=== PATIENT | male | born 1965 | race Caucasian/White ===

== ENCOUNTER 2019-11-19 10:49 | Emergency (ER) | payer MEDICARE, SELFPAY ==
--- NOTE | ~2019-11-19 | XR_ITS ---
XR chest 2V DATE: 11/19/2019 11:25 INDICATION: Loose cough for one month. Smoker. TECHNIQUE: 2 views COMPARISON: 05/06/2018 two-view chest FINDINGS: Bilateral hyperinflation consistent with COPD. No pulmonary infiltrate or consolidation, pl eural effusion or pulmonary vascular congestion or pneumothorax. No hilar or mediastinal enlargement. Normal heart size. Right glenohumeral joint replacement. Diffuse osteopenia. Status post cholecystectomy. IMPRESSION: Bilateral hyperinflation consistent with COPD No active cardiopulmonary disease or significant new finding since 05/06/2018 Reviewed, dictated and finalized at location A.
[2019-11-19 10:58] VITALS: BP 141/78; PULSE 64; RESP 20; TEMP 36.2; O2SAT 100
--- NOTE | 2019-11-19 11:05 | ED.URI ---
HPI - URI/Sore Throat General Chief Complaint: Upper Respiratory Infection Stated Complaint: cough History of Present Illness HPI Narrative: This a 54-year-old man has been coughing for over a month patient states he is coming in because he wanted to make sure everything was okay. Patient is a pack-a-day smoker patient states that he has some shortness of breath is been going on. Patient denies any fever nausea vomiting denies coughing up anything of any color. Related Data Home Medications Medication Instructions Recorded Confirmed morphine 15 mg PO Q12H 11/19/19 11/19/19 tizanidine 2 mg PO HS 11/19/19 11/19/19 Allergies Allergy/AdvReac Type Severity Reaction Status Date / Time adhesive tape AdvReac Unknown Other Verified 05/06/18 11:13 Review of Systems Review of Systems: Narrative: CONSTITUTIONAL: Denies fever, chills, or sweats. EYES: Denies visual changes, redness, or discharge. ENT: Denies rhinorrhea, congestion, sore throat, or otalgia. CARDIOVASCULAR:Denies chest pain, palpitations, or edema. RESPIRATORY: positive cough or dyspnea. GASTROINTESTINAL: Denies abdominal pain, nausea, vomiting, or diarrhea. GENITOURINARY: Denies dysuria or hematuria. SKIN:[Denies rash or itching. MUSCULOSKELETAL:Denies back pain, joint pain, or myalgia. NEUROLOGIC: Denies headache, numbness, or weakness. PSYCHIATRIC:Denies anxiety or depression PMFSH Comments At time as signature, I have reviewed and agree with nursing past medical, social, surgical and family history. Please see nursing chart for further information. There is no relevant family history pertinent to the presenting complaint. Exam Narrative: Exam Narrative: GENERAL:Well-appearing, well-nourished, and in no acute distress. HEAD:Normocephalic, atraumatic. EYES: PERRLA and EOMI. ENT: Nares clear, no rhinorrhea or epistaxis. Mucous membranes moist. NECK: Supple. CHEST: Clear to auscultation.diminished in right lower lobe No respiratory distress. HEART: Regular rate and rhythm. No murmur heard. Normal peripheral pulses. ABDOMEN: Soft, nontender, nondistended, normal active bowel sounds. EXTREMITIES: Normal range of motion. No edema. SKIN: Warm, dry, no rash. NEURO: No focal deficits. Alert and oriented x3. For the Course Vital Signs Vital signs: Vital Signs Temperature 97.2 F L 11/19/19 10:58 Pulse Rate 64 11/19/19 10:58 Respiratory Rate 20 11/19/19 10:58 Blood Pressure 141/78 H 11/19/19 10:58 Pulse Oximetry 100 11/19/19 10:58 Temperature 97.2 F L 11/19/19 10:58 Pulse Rate 64 11/19/19 10:58 Respiratory Rate 20 11/19/19 10:58 Blood Pressure 141/78 H 11/19/19 10:58 Pulse Oximetry 100 11/19/19 10:58 Discharge Plan Discharge Clinical Impression: COPD (chronic obstructive pulmonary disease) Qualifiers: COPD type: unspecified COPD Qualified Code(s): J44.9 - Chronic obstructive pulmonary disease, unspecified Patient Disposition: Home, Self-Care Condition: Stable Instructions: Antibiotic Form, COPD (Chronic Obstructive Pulmonary Disease) (ED), How Your Lungs Work (ED), Chronic Lung Disease and Infection Prevention (ED), Nutrition Guidelines for People with COPD (ED) Additional Instructions: you need to follow up with your PCP for a referral for a Pulmonolgist Prescriptions: New benzonatate 100 mg capsule 100 mg PO TID PRN (Reason: cough) Qty: 20 RF: 0 albuterol sulfate [Ventolin HFA] 90 mcg/actuation HFA aerosol inhaler 2 puff INHALATION QID PRN (Reason: shortness of breath or wheezing) Qty: 8.5 RF: 0 methylprednisolone [Medrol (David)] 4 mg tablets,dose pack See Rx Instructions .ROUTE .COMPLEX Qty: 21 RF: 0 No Action tizanidine 2 mg Tablet 2 mg PO HS RF: 0 morphine 15 mg Tablet Extended Release 15 mg PO Q12H RF: 0 Follow-up/Referrals: UNKNOWN,DOCTOR [Primary Care Provider] - Time of Disposition: 12:00
== END 2019-11-19 12:15 | disposition home or self-care (01) ==
PROVIDERS: Emergency Provider Nurse Practitioner Family
DX: J44.9 Chronic obstructive pulmonary disease, unspecified (principal); F17.200 Nicotine dependence, unspecified, uncomplicated; K21.9 Gastro-esophageal reflux disease without esophagitis; Z98.52 Vasectomy status
CPT/HCPCS: 71046; 99213; G0463

== ENCOUNTER 2022-04-20 09:09 | Emergency (ER) | payer MEDICARE, SELFPAY ==
--- NOTE | ~2022-04-20 | XR_ITS ---
EXAMINATION: XR tibia fibula LT 2V DATE: 04/20/2022 09:59 INDICATION: Lateral left lower leg pain and bruising post fall TECHNIQUE: Anteroposterior and lateral views of the left tibia and fibula were obtained. COMPARISON: None. FINDINGS: Bone alignment is normal. No fracture. Mild joint space narrowing consistent with mild polyarticular osteoarthritis at the lateral compartment of the left knee and at the left ankle and hindfoot. No lef t knee or ankle joint effusion. Soft tissue swelling with subcutaneous edema along the lateral aspect of the proximal to mid left calf. IMPRESSION: 1. No acute osseous abnormality. Reviewed, dictated and finalized at location A.
[2022-04-20 09:18] VITALS: BP 155/76; PULSE 62; RESP 16; TEMP 36.8; O2SAT 100
--- NOTE | 2022-04-20 09:35 | ED.LOWEXIN ---
HPI - Extremity Injury (Lower) General Chief Complaint: Extremity Injury, Lower Stated Complaint: Left Leg Injury Time Seen by Provider: 04/20/22 09:48 Source: patient and RN notes reviewed Mode of arrival: ambulatory Limitations: no limitations History of Present Illness HPI Narrative: 57-year-old I saw male presents with concern for left lower leg injury. Reports on Wednesday he slipped on a wet floor landing on the side of his leg. He reports he immediately had a large swollen area to the lateral leg, below the knee. Reports the swelling has decreased however he still has pain to touch and pain with weightbearing. He denies taking any [id number] pain medications, has not used ice or other intervention. He denies decree sensation, strength, range of motion. MD complaint: leg injury Related Data Home Medications Medication Instructions Recorded Confirmed morphine 15 mg tablet,extended 15 mg PO Q12H 11/19/19 11/19/19 release tizanidine 2 mg tablet 2 mg PO HS 11/19/19 11/19/19 Allergies Allergy/AdvReac Type Severity Reaction Status Date / Time latex Allergy Rash Verified 04/20/22 09:22 adhesive tape AdvReac Unknown Other Verified 05/06/18 11:13 Review of Systems Review of Systems: CONSTITUTIONAL: Denies malaise, chills, sweats, or fever. SKIN: Denies rash or itching, redness, warmth. Reports left lower leg abrasion MUSCULOSKELETAL: Reports left leg pain, swelling, bruising NEUROLOGIC: Denies numbness, weakness All systems reviewed & are unremarkable except as noted in HPI and below PMFSH Comments At time of signature, agree with nursing past medical, surgical, social and family history. There is no relevant family history pertinent to the presenting complaint Exam Narrative: GENERAL: Well-appearing, well-nourished, and in no acute distress. HEAD: Normocephalic, atraumatic. EYES: PERRLA, conjunctivae clear NECK: Supple. CHEST: Speaks in full sentences. No respiratory distress. HEART: Regular rate and rhythm. Normal and equal peripheral pulses. EXTREMITIES: Left lower leg is has normal strength and sensation, grossly normal range of motion. Lateral edema, ecchymosis, tenderness, below the knee-not involving the knee. Normal sensation with sensitivity to light touch and pain. No skin tenting, no devitalized tissue or atrophy, no trophic changes, no obvious deformity, alignment normal, nearby joints and structures intact. Distal pulses palpable and equal bilaterally, skin warm, dry, pink. Capillary refill less than 3 seconds. SKIN: Warm, dry, no rash. Scabbed abrasion to the left lower lateral leg, below the NEURO: Alert and oriented x3. PSYCH: Normal mood and affect Course Course Emergency Course: Patient is aware of diagnosis, understands and agrees to treatment plan. Anticipatory guidance given. Patient agrees to follow-up as directed and is aware of reasons to seek care at the emergency department. Portions of this record may have been created with voice recognition software Level of Care: Express Care Visit Vital Signs Vital signs: Vital Signs Temperature 98.2 F 04/20/22 09:18 Pulse Rate 62 04/20/22 09:18 Respiratory Rate 16 04/20/22 09:18 Blood Pressure 155/76 H 04/20/22 09:18 Pulse Oximetry 100 04/20/22 09:18 Oxygen Delivery Room Air 04/20/22 09:18 Temperature 98.2 F 04/20/22 09:18 Pulse Rate 62 04/20/22 09:18 Respiratory Rate 16 04/20/22 09:18 Blood Pressure 155/76 H 04/20/22 09:18 Pulse Oximetry 100 04/20/22 09:18 Oxygen Delivery Room Air 04/20/22 09:18 Reviewed. MDM - Extremity Injury (Lower) MDM Narrative Medical decision making narrative: Patients injury and pain is consistent with musculoskeletal etiology. No signs of neurological or vascular compromise on exam. Compartments and tissues are soft without signs of compartment syndrome. Pain is felt appropriate for further evaluation on an outpatient basis. Imaging Data My impression: Imag
== END 2022-04-20 10:26 | disposition home or self-care (01) ==
PROVIDERS: Emergency Provider Nurse Practitioner; PCP Internal Medicine
DX: S80.12XA Contusion of left lower leg, initial encounter (principal); W01.0XXA Fall on same level from slipping, tripping and stumbling without subsequent striking against object, initial encounter; K21.9 Gastro-esophageal reflux disease without esophagitis; Q79.60 Ehlers-Danlos syndrome, unspecified; Z98.52 Vasectomy status
CPT/HCPCS: 73590; 99213; G0463